=== PATIENT | male | born 1935 | race Caucasian/White ===

== ENCOUNTER 2020-08-10 07:48 | Outpatient (CLI) | payer MEDICARE, SELFPAY | END 2020-08-10 07:49 | disposition home or self-care (01) | LOC: ANHAUDIO 07:53 | PROVIDERS: Visit Provider Otolaryngology | DX: R42 Dizziness and giddiness (principal) | CPT/HCPCS: 92537; 92540 ==

== ENCOUNTER 2022-04-14 07:19 | Inpatient (IN) | payer MEDICARE, SELFPAY ==
[2022-04-14] VITALS (20 sets, daily range): BP systolic 105–148; BP diastolic 61–97; PULSE 90–118; RESP 16–22; TEMP 36–36.8; O2SAT 94–100; BMI 33.5
--- NOTE | ~2022-04-14 | CT_ITS ---
CT head without contrast Indication: Weakness, status post fall Technique: Serial scans were obtained through the brain without the administration of contrast. Dose reduction technique was used on this scan by utilizing automated exposure control and iterative recon struction technique. The dose-length product (DLP) was 983.67 mGy-cm. Findings: There is no evidence of intracranial hemorrhage, mass lesion, or acute infarct. The ventri cles and subarachnoid spaces are dilated, consistent with mild atrophy. Low attenuation regions are seen within the periventricular white matter bilaterally, likely representing changes from chronic mi crovascular ischemic disease. There is no evidence of edema, mass effect or midline shift. There is right maxillary sinus disease. The remaining visualized paranasal sinuses and mastoid air cells are c lear. Impression: No intracranial hemorrhage, mass, or acute infarct. Atrophy and chronic white matter changes, as above. Right maxillary sinus disease. Reviewed, dictated and finalized at location . LE SAWYER Impression: No intracranial hemorrhage, mass, or acute infarct. Atrophy and chronic white matter changes, as above. Right maxillary sinus disease.
--- NOTE | ~2022-04-14 | US_ITS ---
EXAMINATION: US venous doppler [facility] DATE: 04/19/2022 14:23 INDICATION: Leg pain, swelling . TECHNIQUE: Grayscale images without and with compression and Doppler images of the bilateral lower ex tremity veins were obtained. COMPARISON: None FINDINGS: The right common femoral vein, profunda (deep) femoral vein, femoral vein, popliteal vein, peroneal v ein, posterior tibial veins, gastrocnemius vein, and greater saphenous vein are patent. The left common femoral vein, profunda femoral vein, femoral vein, popliteal vein, peroneal vein, pos terior tibial veins, gastrocnemius vein, and greater saphenous vein are patent. IMPRESSION: 1. Patent bilateral lower extremity veins. No evidence of deep venous thrombosis. Reviewed, dictated and finalized at location K. CUTTER DIAMOND IMPRESSION: 1. Patent bilateral lower extremity veins. No evidence of deep venous thrombos is.
--- NOTE | ~2022-04-14 | XR_ITS ---
EXAMINATION: XR chest 1V DATE: 04/14/2022 08:02 INDICATION: Weakness. TECHNIQUE: A single frontal view of the chest was obtained. COMPARISON: None. FINDINGS: Calcified pulmonary nodules and calcified mediastinal lymph nodes are consistent with old g ranulomatous disease. There are airspace opacities in right lower lung zone and left mid and lower jennifer ng zones. No pleural effusion or pneumothorax. The heart size is normal. IMPRESSION: 1. Airspace opacities in right lower lung zone and left mid and lower lung zones, consistent with ate lectasis versus pneumonia. Reviewed, dictated and finalized at location A. ORT SERVICES REP IMPRESSION: 1. Airspace opacities in right lower lung zone and left mid and lower lung zone s, consistent with atelectasis versus pneumonia.
--- NOTE | ~2022-04-14 | XR_ITS ---
EXAMINATION: XR chest 1V portable INDICATION: Shortness of breath TECHNIQUE: Portable AP chest at 1821 hours COMPARISON: 04/14/2022 FINDINGS: Airspace opacities of the lung bases and left midlung zone persist but have improved. No pl eural effusion or pneumothorax. The cardiomediastinal silhouette is normal. IMPRESSION: 1. Persistent but improved airspace opacities of the lung bases and left midlung zone, consistent wit h atelectasis versus pneumonia. Reviewed, dictated and finalized at location F. N RELATIONS PROFESSOR IMPRESSION: 1. Persistent but improved airspace opacities of the lung bases and left midlun g zone, consistent with atelectasis versus pneumonia.
--- NOTE | ~2022-04-14 | XR_ITS ---
Right Humerus Technique: AP and lateral views were obtained. Clinical History: Pain Findings: No fracture or dislocation is seen. Osseous alignment is anatomic. There is mild to moderat e degenerative change of the glenohumeral and acromioclavicular joints. Soft tissues are unremarkable . Impression: No fracture or dislocation. Mild to moderate degenerative change at the glenohumeral and acromial clavicular joints. Reviewed, dictated and finalized at location . L DESK CLERK Impression: No fracture or dislocation. Mild to moderate degenerative change at the glenohumeral and acromial clavicula r joints.
--- NOTE | ~2022-04-14 | MR_ITS ---
EXAMINATION: MR brain/brain stem wo con DATE: 04/14/2022 16:54 INDICATION: Slurred speech. TECHNIQUE: Magnetic resonance imaging (MRI) of the brain and brainstem was performed without intraven ous contrast. COMPARISON: Head CT 04/14/2022 FINDINGS: Motion artifact is noted. There are scattered areas of nonspecific increased T2-weighted si gnal intensity in the cerebral and cerebellar white matter, deep [place] nuclei, and lexie. There are sma ll old infarcts in the cerebellum. There is no intracranial hemorrhage, acute infarction, or abnormal intracranial mass lesion. There is old lacunar infarct in right thalamus. There is an old infarct in the left frontal lobe periventricular white matter. There is a punctate old microhemorrhage in left thalamus. The ventricles are normal in size. There are likely changes of ocular lens replacement surg eries. There is mucosal thickening in the paranasal sinuses. There is complete opacification of right maxillary sinus. The mastoid air cells are normal. IMPRESSION: 1. Old infarcts in the cerebellum, right thalamus, and left frontal lobe. 2. Extensive nonspecific cerebral and cerebellar white matter disease and disease of the deep [place] nu clei and lexie, which likely represents chronic small vessel ischemic disease. 3. Chronic sinusitis. Reviewed, dictated and finalized at location A. ALS LIBRARIAN IMPRESSION: 1. Old infarcts in the cerebellum, right thalamus, and left frontal lobe. 2. Extensive nonspecific cerebral and cerebellar white matter disease and disea se of the deep ireland nuclei and lexie, which likely represents chronic small vess el ischemic disease. 3. Chronic sinusitis.
--- NOTE | 2022-04-14 07:37 | ECG_ITS ---
Measurements Intervals [place] Rate: 94 P: 17 WV: 162 QRS: -41 QRSD: 113 T: 80 QT: 358 QTc: 448 Interpretive Statements SINUS RHYTHM ATRIAL PREMATURE COMPLEX LEFT AXIS DEVIATION INCOMPLETE LEFT BUNDLE BRANCH BLOCK BORDERLINE R WAVE PROGRESSION, ANTERIOR LEADS BORDERLINE ST-T WAVE ABNORMALITY- HIGH LATERAL LEADS BASELINE ARTIFACT- I, II, AVR, AVL ABNORMAL ECG NO PREVIOUS ECG AVAILABLE FOR COMPARISON Electronically Signed On 04-14-2022 10:42:33 HEDGE FUND ACCOUNTANT by Adrian Engel D.O.
--- NOTE | 2022-04-14 07:41 | ED.GENADULT ---
HPI - General Adult General Chief complaint: Fall Stated complaint: weakness, fall Time Seen by Provider: 04/14/22 07:27 History of Present Illness HPI narrative: 87-year-old male presenting to the emergency department for evaluation of increased generalized weakness. Patient states he has had many frequent falls over the last few weeks. Patient states he had a fall last night and then 2 falls this morning. Patient attributes these to increased weakness. Patient denies any injuries from these falls. Patient states last year he had COVID and has never fully recovered. Patient reports she did have a stroke approximately 1 month ago and has mild left-sided deficit from this. Patient denies any chest pain or shortness of breath. Patient denies any nausea vomiting or diarrhea. Related Data Home Medications Medication Instructions Recorded Confirmed Adult Aspirin 81 mg PO DAILY 04/14/22 04/14/22 Adult Mucus Relief 1 tab-cap PO PRN PRN drainage 04/14/22 04/14/22 Adults Multivitamin 1 tab-cap PO DAILY 04/14/22 04/14/22 Jardiance 10 mg PO DAILY 04/14/22 04/14/22 acetaminophen 325 mg capsule 325 mg PO PRN PRN Pain 04/14/22 04/14/22 (Tylenol) alprazolam 0.5 mg tablet (Xanax) 0.5 mg PO PRN PRN Anxiety 04/14/22 04/14/22 atorvastatin 80 mg tablet 80 mg PO HS 04/14/22 04/14/22 cetirizine 10 mg tablet 10 mg PO DAILY 04/14/22 04/14/22 citalopram 20 mg tablet 20 mg PO DAILY 04/14/22 04/14/22 docusate sodium 100 mg capsule 100 mg PO PRN PRN Constipation 04/14/22 04/14/22 (Stool Softener) fluticasone propionate 50 2 spray intranasal PRN PRN 04/14/22 04/14/22 mcg/actuation nasal Congestion spray,suspension meclizine 12.5 mg tablet 12.5 mg PO DAILY 04/14/22 04/14/22 polyethylene glycol 3350 17 gram 17 g PO PRN PRN Constipation 04/14/22 04/14/22 oral powder packet (Miralax) Allergies Allergy/AdvReac Type Severity Reaction Status Date / Time lisinopril Allergy Severe Swelling Verified 04/14/22 11:37 of Lip/Tongue/Throat aluminum Allergy Unknown Verified 04/14/22 12:28 neomycin Allergy Unknown Verified 04/14/22 12:28 warfarin [From Coumadin] Allergy Unknown Verified 04/14/22 11:37 zinc Allergy Unknown Verified 04/14/22 12:28 Review of Systems Review of Systems: Increased generalized weakness All systems reviewed & are unremarkable except as noted in HPI and below PMFSH Past Medical History Medical History Abdominal aortic aneurysm COVID-19 Diabetes Hyperlipidemia Hypertension Pneumonia Staph infection Stroke Surgical History Surgical History S/p total knee replacement, bilateral Family History Family History Father Acute myocardial infarction Heart disease Hypertension Mother Leukemia Social History Social History (Updated 04/14/22 @ 13:53 by SUSI Cloud) Social History: Patient lives at the [facility], he has 3 daughters. His daughter Aleshia was the surrogate. He is to be a DNR per the daughter, and he was a foster. Smoking status: Never smoker Alcohol intake: never Substance use: never Substance use type: does not use Lack of Transportation: No Lack of Food: Never True Current Housing: I Have Housing Concerned About Future Housing: No Difficulty Paying Gas/Electric Bills: No Difficulty Paying for Meds: No Currently Unemployed: No Education: High School Diploma/GED Difficulty w/ Childcare or Family Care: No Living arrangements: assisted living Additional living arrangements comments: [place] Occupation/Education: retired Additional occupation/education comments: Foster Gender identity (if verbalized by the patient): Male Sexual Orientation (if Verbalized by the Patient): Straight or Heterosexual Spiritual care concerns: No Agree to blood products: Yes Exam Na
[2022-04-14 08:40] LABS: Basophils Percent Auto 0.2 % (0.2-1.2); Eosinophils Absolute Auto 0.1 K/mm3 (0-0.3); Eosinophils Percent Auto 1.1 % (0-4.4); Hemoglobin 14.9 g/dL (14.0-18.0); Immature Granulocyte Absolute 0.06 K/mm3 (0.00-0.031); Immature Granulocyte Percent A 0.5 % (0-0.5); Lymphocytes Absolute Auto 1.15 K/mm3 (0.9-3.2); Mean Corpuscular HGB Conc 33.9 g/dl (32-36); Mean Corpuscular Hemoglobin 36.6 pg (26-34); Mean Corpuscular Volume 108.1 fl (80-100); Monocytes Absolute Auto 0.8 K/mm3 (0.1-0.6); Monocytes Percent Auto 6.7 % (2.6-8.5); Neutrophils Absolute Auto 9.4 K/mm3 (1.3-6.7); Neutrophils Percent Auto 81.5 % (45.5-73.1); Red Blood Count 4.07 M/mm3 (4.6-6.20); Red Cell Distribution Width 13.1 % (11.5-14.5); White Blood Count 11.5 K/mm3 (4.5-10.0)
[2022-04-14 09:04] LABS: Lactic Acid Reflex 2.4 mmol/L (0.7-2.0)
[2022-04-14 09:07] LABS: INR 1.1
[2022-04-14 09:09] LABS: Partial Thromboplastin Time 26.3 SECONDS (22.3-36.8)
[2022-04-14 09:13] LABS: Influenza A QL RT-PCR Negative (Negative); Influenza B QL RT-PCR Negative (Negative); RSV RNA, RT-PCR Negative (Negative); SARS-CoV-2 RNA PCR Negative
[2022-04-14 10:17] LABS: Alanine Aminotransferase 29 U/L (6-50); Albumin Level 4.1 g/dL (3.5-5.1); Alkaline Phosphatase 76 U/L (38-126); Anion Gap 8 mmol/L (8-16); Aspartate Amino Transferase 22 U/L (17-59); Bilirubin,Total 1.4 mg/dL (0.2-1.3); Blood Urea Nitrogen 27 mg/dL (9-20); Calcium 9.1 mg/dL (8.4-10.2); Carbon Dioxide 24 mmol/L (22-30); Chloride 99 mmol/L (98-107); Estimated CRCL calculation 59 ml/min; Estimated Glomerular Filt Rate > 60; Glucose 213 mg/dL (65-110); Potassium 4.5 mmol/L (3.4-5.0); Sodium 131 mmol/L (137-145)
[2022-04-14 10:34] LABS: Appearance Urine Clear (Clear); Bacteria Urine None Seen /hpf; Bilirubin Urine Negative (Negative); Blood Urine Negative (Negative); Color Urine Yellow (Yellow); Glucose Urine UA 2+ mg/dL (Negative); Ketones Urine Negative (Negative); Leukocyte Esterase Ur Negative LEU/UL (Negative); Nitrate Urine Negative (Negative); Non Pathogenic Casts 0-2; Protein Urine 1+ mg/dL (Negative); RBC Urine 0-2 /hpf (0-2); Specific Grav Ur 1.028 (1.001-1.035); Squamous Epithelial Cell Urine None seen /hpf (Few); Urobilinogen Urine 0.2 mg/dL (<2.0); WBC Urine 0-5 /hpf
[2022-04-14 10:37] LABS: Add Urine Microscopic? YES
[2022-04-14 11:35] LABS: Reflex Lactic Acid Yes or No Add Lactic
[2022-04-14 11:37] LABS: NT Pro B Type Natriuretic Pept 983 pg/mL (19.9-100)
--- NOTE | 2022-04-14 11:58 | ADMGEN ---
This patient, Hernandez Sutton, was admitted to [facility] Room 305-01. Patient/family oriented to hospital policies and general routines including ID bracelet, bed and alarms, visiting hours, pain management, procedures, bathroom and other care routines, personal items, smoking policy, room service/diet, and visiting hours. Information on how to activate the Rapid Response Team has been discussed. Patient/Family are encouraged to report perceived risks to care and to ask questions if they do not understand what they are told or what they should do.
--- NOTE | 2022-04-14 12:00 | PM.IMHP ---
H&P: HPI History of Present Illness Date/Time: 04/14/22 1200 Chief Complaint: Generalized weakness, aches, frequent falls Narrative: Patient is a 87-year-old male with a past medical history of stroke, COVID, pneumonia, hypertension, AAA who presented the ED from [facility] with complaints of frequent falls and weakness. Daughter was present patient was a poor historian. Daughter stated that all this started about 3 days ago. Her sister was there on Sunday and noticed that the patient was having hard time completing sentences and had fallen. On Sunday the patient had a fall however she thinks that was induced by possibly other people. the patient fell again and today he fell twice again. Patient stated that he got up and was going to the bathroom however he was getting lightheaded and dizzy he stated that he has been having this issue for about a year. He stated that he has been to many different doctors and specialist and has gotten better however it has returned. The daughter stated that he had COVID in January and February of 2020 which she was starting to have symptoms of the dizziness and weakness then. She stated that since then he has just been having hard time getting around. She did state that he did present the same exact way when he had COVID back then. She also stated that he was very weak with the dizziness, lightheadedness, falls. The daughter did state that the patient has not complained of any issues including chest pain, shortness a breath, cough, diarrhea, constipation, nausea, vomiting. Patient has no compromised appetite and the daughter even stated that he eats like a horse. Both the patient and the daughter stated the patient just very tired and achy. The daughter also iterated that the patient has been sleeping a lot lately. Patient denies any urinary issues including inability to started stream or to keep history. Daughter did rate the patient is uncircumcised and does get a rash often. The daughter also states the his bilateral lower extremities are most the time swollen and he does have a little sore on the left leg however the wound nurse has been taking care of that at the [facility]. Head CT did showed no acute infarct mass or hemorrhage, did show atrophy chronic white matter changes and sinus disease. Chest x-ray showed airspace opacities in the right lower lung zones and mid left and lower lung zones consistent with atelectasis versus pneumonia. Patient was not found to have any broken bones. Patient did have an elevated BNP of 983, white count is 11.5, legs do have 2 to 3+ pitting edema bilaterally. COVID test was negative however the daughter did state that it took 5 test and blood test for them to figure out that he had COVID the 1st time. Patient is not needing any current oxygen her therapy at this time. Patient is being admitted to the hospital service under and patient will need greater than 2 midnights for treatment and recovery [facility] Past Medical History Medical History Abdominal aortic aneurysm COVID-19 Diabetes Hyperlipidemia Hypertension Pneumonia Staph infection Stroke Surgical History Surgical History S/p total knee replacement, bilateral Family History Family History Father Acute myocardial infarction Heart disease Hypertension Mother Leukemia Social History Social History (Updated 04/14/22 @ 13:53 by SUSI Cloud) Social History: Patient lives at the [facility], he has 3 daughters. His daughter Aleshia was the surrogate. 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 Smoking status: Never smoker Alcohol intake: never Substance use: never Substance use type: does not use Lack of Transportation: No Lack of Food: Never True Current Housing: I Have Housing Concern
[2022-04-14 12:33] LABS: Glucose Point of Care 236 mg/dl (65-105)
[2022-04-14 15:37] LABS: Lactic Acid 2.3 mmol/L (0.7-2.0)
[2022-04-14] MEDS: DOCUSATE SODIUM 100 MG CAPSULE PO (17:14)
[2022-04-14 17:24] LABS: Glucose Point of Care 200 mg/dl (65-105)
[2022-04-14] MEDS: ATORVASTATIN 40 MG TABLET 80 MG PO (21:22)
[2022-04-14 22:31] LABS: Glucose Point of Care 233 mg/dl (65-105)
--- NOTE | 2022-04-14 23:47 | PCRCNOTE ---
Pt does not want our CPAP, and states he rarely wears his home one
--- NOTE | 2022-04-15 | ECHO_ITS ---
Patient Info Name: Hernandez Sutton Age: 87 years : 1935 Gender: Male Ht: 71 in Wt: 240 lbs BSA: 2.37 m2 HR: 87 bpm BP: 110 / 86 mmHg Technical Quality: Fair Exam Date: 04/15/2022 8:28 AM Exam Location: [facility] Patient Status: Inpatient Admit Date: 04/14/2022 Staff Ordering Physician: Anand Santana Residential Mortgage Manager: Alessia Morse RDCS Attending Provider: Eliezer Romero MD Referring Physician: Max GREEN; Exam Type: CA echo doppler color flow Study Info Indications J81.0 - Acute pulmonary edema Complete two-dimensional, color flow and Doppler transthoracic echocardiogram is performed. Summary 1. Complete two-dimensional, color flow and Doppler transthoracic echocardiogram is performed. 2. Left ventricular chamber dimension is normal. 3. Left ventricular systolic function is normal, estimated at 55-60%. 4. There is mildly increased left ventricular wall thickness. 5. The left ventricular diastolic function is grade I diastolic dysfunction. 6. E/e' 9 is minimally elevated. 7. There is mild aortic valve sclerosis. 8. There is moderate aortic valve regurgitation. Left Ventricle E/e' 9 is minimally elevated. Left ventricular chamber dimension is normal. Left ventricular systolic function is normal, estimated at 55-60%. There is mildly increased left ventricular wall thickness. The left ventricular diastolic function is grade I diastolic dysfunction. Right Ventricle Right ventricular systolic function is normal and with normal TAPSE 1.9 cm. Right ventricular chamber dimension is normal. Left Atria Left atrial chamber dimension is normal. Right Atria Right atrial chamber dimension is normal. Aortic Valve The aortic valve is trileaflet. There is mild aortic valve sclerosis. There is no aortic valve stenosis. There is moderate aortic valve regurgitation. Pulmonic Valve There is no pulmonic regurgitation. Mitral Valve There is no mitral valve stenosis. There is no mitral valve regurgitation. Tricuspid Valve There is no tricuspid valve regurgitation. Pericardium/Pleural There is no pericardial effusion. Inferior Vena Cava Normal inferior vena cava with >50% collapse upon inspiration consistent with normal right atrial pressure, 5 mmHg. Aorta The aortic root size at the sinus of Valsalva is normal. Left Ventricular Outflow Tract Name Value Normal LVOT 2D LVOT Diameter 2.7 cm LVOT Doppler LVOT Peak Gradient 4 mmHg LVOT Mean Gradient 2 mmHg LVOT VTI 26 cm LVOT VTI/AV VTI Ratio 1.3 LVOT Stroke Volume 148 ml LVOT CO 12.9 l/min LVOT CI 5.4 l/min/m2 Pulmonic Valve Name Value Normal PV Doppler
[2022-04-15 06:00] VITALS: BP 100/76; PULSE 86; RESP 16; TEMP 36.4; O2SAT 93
[2022-04-15 06:39] LABS: Basophils Percent Auto 0.4 % (0.2-1.2); Eosinophils Absolute Auto 0.2 K/mm3 (0-0.3); Eosinophils Percent Auto 2.4 % (0-4.4); Hematocrit 36.7 % (42.0-52.0); Hemoglobin 12.6 g/dL (14.0-18.0); Immature Granulocyte Absolute 0.06 K/mm3 (0.00-0.031); Immature Granulocyte Percent A 0.7 % (0-0.5); Lymphocytes Absolute Auto 1.26 K/mm3 (0.9-3.2); Lymphocytes Percent Auto 14.9 % (18.3-44.2); Mean Corpuscular HGB Conc 34.3 g/dl (32-36); Mean Corpuscular Hemoglobin 36.2 pg (26-34); Mean Corpuscular Volume 105.5 fl (80-100); Mean Platelet Volume 9.3 fl (7.4-10.4); Monocytes Absolute Auto 0.7 K/mm3 (0.1-0.6); Monocytes Percent Auto 7.7 % (2.6-8.5); Neutrophils Absolute Auto 6.3 K/mm3 (1.3-6.7); Neutrophils Percent Auto 73.9 % (45.5-73.1); Platelet Count Result 118 k/mm3 (150-375); Red Blood Count 3.48 M/mm3 (4.6-6.20); Red Cell Distribution Width 13.1 % (11.5-14.5); White Blood Count 8.5 K/mm3 (4.5-10.0)
[2022-04-15 06:44] LABS: Alanine Aminotransferase 23 U/L (6-50); Albumin Level 3.3 g/dL (3.5-5.1); Alkaline Phosphatase 64 U/L (38-126); Anion Gap 3 mmol/L (8-16); Aspartate Amino Transferase 19 U/L (17-59); Bilirubin,Total 1.6 mg/dL (0.2-1.3); Blood Urea Nitrogen 21 mg/dL (9-20); Calcium 8.1 mg/dL (8.4-10.2); Carbon Dioxide 26 mmol/L (22-30); Chloride 96 mmol/L (98-107); Estimated CRCL calculation 72 ml/min; Estimated Glomerular Filt Rate > 60; Glucose 179 mg/dL (65-110); Potassium 4.2 mmol/L (3.4-5.0); Sodium 125 mmol/L (137-145)
[2022-04-15 07:43] LABS: Glucose Point of Care 186 mg/dl (65-105)
[2022-04-15 08:50] LABS: Hemoglobin A1C 7.9 % (<5.7)
[2022-04-15] MEDS: EMPAGLIFLOZIN 10 MG TABLET PO (09:29)
[2022-04-15] MEDS: MECLIZINE HCL 12.5 MG TABLET PO (09:29)
[2022-04-15] MEDS: CITALOPRAM HYDROBROMIDE 20 MG TABLET PO (09:29)
[2022-04-15] MEDS: DOCUSATE SODIUM 100 MG CAPSULE PO ×2 (09:29→16:08)
[2022-04-15] MEDS: ASPIRIN 81 MG ENTERIC TABLET PO (09:29)
[2022-04-15] MEDS: ACETAMINOPHEN 325 MG TABLET 650 MG PO (09:42)
[2022-04-15] MEDS: LORATADINE 10 MG TABLET PO (09:43)
[2022-04-15] MEDS: SODIUM CHLORIDE 0.9% IV 1,000 ML 100 ML IV CONT (09:43)
--- NOTE | 2022-04-15 10:15 | PM.IMPN ---
Progress Note: A&P Assessment and Plan (1) Pneumonia: Code(s): J18.9 - Pneumonia, unspecified organism Status: Acute Assessment and Plan: Chest xray showed airspace opacities in right lower lung zone, and left mid and lower lung zone consistent with atelectasis, versus PNA Continue IV ceftriaxone and azithromycin WBC trending down currently 8.5 Trend labs Chest xray in 2 days Sputum culture ordered Blood cultures pending (2) CHF (congestive heart failure): Code(s): I50.9 - Heart failure, unspecified Status: Acute Assessment and Plan: BNP 983 Echo EF 55-60%, grade 1 diastolic dysfunction Daily weights continue aspirin, consider beta david Trend urine output 2-3+ pitting edema mainly on the right Most likely acute on chronic diastolic heart failure with possible exacerbation (3) Cellulitis: Code(s): L03.90 - Cellulitis, unspecified Status: Acute Assessment and Plan: Redness, swelling, pain, and fever noted to the right lower extremity Changed antibiotics to vanco, cefepime, Flagyl Ordered wraps WBC stable at 8.5 Continue to trend symptoms Adjust therapy as indicated (4) Dizziness: Code(s): R42 - Dizziness and giddiness Status: Acute Assessment and Plan: Orthostatic bloods ordered Consider holding blood pressure medications if hypotension is noted Continue to trend labs MRI of the brain 1. Old infarcts in the cerebellum, right thalamus, and left frontal lobe. 2. Extensive nonspecific cerebral and cerebellar white matter disease and disease of the deep ireland nuclei and lexie, which likely represents chronic small vessel ischemic disease. 3. Chronic sinusitis. Trend labs and vital signs Could be related to the cerebellar stroke (5) Generalized weakness: Code(s): R53.1 - Weakness Status: Acute Assessment and Plan: Could be related to infection Orthostatic blood pressures ordered Brain MRI found old strokes Could be related to old infarct (6) Hyperlipidemia: Code(s): E78.5 - Hyperlipidemia, unspecified Status: Acute Assessment and Plan: Continue atorvastatin Consider lipid panel (7) Hypertension: Code(s): I10 - Essential (primary) hypertension Status: Acute Assessment and Plan: Current BP is 108/67 Trend BP No home medication Adjust therapy as indicated (8) Diabetes: Code(s): E11.9 - Type 2 diabetes mellitus without complications Status: Acute Assessment and Plan: Glucose is 179 Continue home Jardiance A1c 7.9 ISS Hypoglycemia protocol Accu cheks AC/HS trend glucose Adjust therapy as indicated (9) Frequent falls: Code(s): R29.6 - Repeated falls Status: Acute Assessment and Plan: Could be related to pneumonia PT/OT ordered Orthostatic blood pressures found MRI of the brain ordered found many strokes Fall precautions Time Spent With Patient Time: 56 minutes Spoke to his daughter, updated plan and shared new findings. Time with patient: Greater than 35 minutes Subjective Date/time seen: 04/15/22 1015 Interval history: 04/15/22 1015 Patient is a lot better today. He is sitting in bed eating. He is alert and oriented. He was able to answer all questions. He did state that the aches and pains were better, and that he was able to move around better. Patient also wants to get up to chair. Patient stated that he is not having any further chest pain, shortness a breath, nausea, vomiting, diarrhea, constipation. He did state that his right leg was experiencing some pain. Right leg did appear to have some cellulitis appearing. Leg is hot, red, swollen from under the knee to the foot. There is an open wound on the left inner lateral sh
--- NOTE | 2022-04-15 10:15 | P.PNIM_ITS ---
Progress Note: A&P Assessment and Plan (1) Pneumonia: Code(s): J18.9 - Pneumonia, unspecified organism Status: Acute Assessment and Plan: * Chest xray showed airspace opacities in right lower lung zone, and left mid and lower lung zone consistent with atelectasis, versus PNA * Continue IV ceftriaxone and azithromycin * WBC trending down currently 8.5 * Trend labs * Chest xray in 2 days * Sputum culture ordered * Blood cultures pending (2) CHF (congestive heart failure): Code(s): I50.9 - Heart failure, unspecified Status: Acute Assessment and Plan: * BNP 983 * Echo EF 55-60%, grade 1 diastolic dysfunction * Daily weights * continue aspirin, consider beta david * Trend urine output * 2-3+ pitting edema mainly on the right * Most likely acute on chronic diastolic heart failure with possible exacerbation (3) Cellulitis: Code(s): L03.90 - Cellulitis, unspecified Status: Acute Assessment and Plan: * Redness, swelling, pain, and fever noted to the right lower extremity * Changed antibiotics to vanco, cefepime, Flagyl * Ordered wraps * WBC stable at 8.5 * Continue to trend symptoms * Adjust therapy as indicated (4) Dizziness: Code(s): R42 - Dizziness and giddiness Status: Acute Assessment and Plan: * Orthostatic bloods ordered * Consider holding blood pressure medications if hypotension is noted * Continue to trend labs * MRI of the brain 1. Old infarcts in the cerebellum, right thalamus, and left frontal lobe. 2. Extensive nonspecific cerebral and cerebellar white matter disease and disease of the deep [place] nuclei and lexie, which likely represents chronic small vessel ischemic disease. 3. Chronic sinusitis. * Trend labs and vital signs * Could be related to the cerebellar stroke (5) Generalized weakness: Code(s): R53.1 - Weakness Status: Acute Assessment and Plan: * Could be related to infection * Orthostatic blood pressures ordered * Brain MRI found old strokes * Could be related to old infarct (6) Hyperlipidemia: Code(s): E78.5 - Hyperlipidemia, unspecified Status: Acute Assessment and Plan: * Continue atorvastatin * Consider lipid panel (7) Hypertension: Code(s): I10 - Essential (primary) hypertension Status: Acute Assessment and Plan: * Current BP is 108/67 * Trend BP * No home medication * Adjust therapy as indicated (8) Diabetes: Code(s): E11.9 - Type 2 diabetes mellitus without complications Status: Acute Assessment and Plan: * Glucose is 179 * Continue home Jardiance * A1c 7.9 * ISS * Hypoglycemia protocol * Accu cheks AC/HS * trend glucose * Adjust therapy as indicated (9) Frequent falls: Code(s): R29.6 - Repeated falls Status: Acute Assessment and Plan: * Could be related to pneumonia * PT/OT ordered * Orthostatic blood pressures found * MRI of the brain ordered found many strokes * Fall precautions Time Spent With Patient Time: 56 minutes Spoke to his daughter, updated plan and shared
[2022-04-15 11:22] LABS: Glucose Point of Care 264 mg/dl (65-105)
[2022-04-15] MEDS: INSULIN ASPART (*BKC) 100 UNITS/ML SUB-Q ×2 (11:43→16:24)
[2022-04-15 13:27] LABS: Creatinine Urine 57.9 mg/dL; Urea Random Urine 551 MG/DL
[2022-04-15 13:33] LABS: Sodium Urine Random 50 meq/L
[2022-04-15 13:56] VITALS: BP 108/67; PULSE 88; RESP 16; TEMP 36.1; O2SAT 96
[2022-04-15] MEDS: metroNIDAZOLE 500 MG/ISO 100ML 500 MG/100 ML BAG 100 MG IVPB ×2 (16:08→21:31)
[2022-04-15 16:20] LABS: Glucose Point of Care 209 mg/dl (65-105)
[2022-04-15] MEDS: ATORVASTATIN 40 MG TABLET 80 MG PO (20:03)
[2022-04-15 21:00] VITALS: PULSE 87; O2SAT 95
[2022-04-15 21:22] LABS: Glucose Point of Care 242 mg/dl (65-105)
[2022-04-15 22:00] VITALS: BP 126/76; PULSE 89; RESP 16; TEMP 36.2; O2SAT 96
[2022-04-16] MEDS: ALPRAZolam (*CRX) 0.5 MG TABLET PO (00:21)
[2022-04-16] MEDS: SODIUM CHLORIDE 0.9% IV 1,000 ML 100 ML IV CONT ×2 (02:32→17:24)
[2022-04-16 05:23] VITALS: BP 128/86; PULSE 111; RESP 20; TEMP 37.2; O2SAT 98
[2022-04-16] MEDS: metroNIDAZOLE 500 MG/ISO 100ML 500 MG/100 ML BAG 100 MG IVPB ×3 (05:56→21:01)
[2022-04-16 08:20] LABS: Glucose Point of Care 220 mg/dl (65-105)
[2022-04-16] MEDS: INSULIN ASPART (*BKC) 100 UNITS/ML SUB-Q ×2 (08:47→11:54)
[2022-04-16] MEDS: CITALOPRAM HYDROBROMIDE 20 MG TABLET PO (08:50)
[2022-04-16] MEDS: DOCUSATE SODIUM 100 MG CAPSULE PO ×2 (08:50→17:22)
[2022-04-16] MEDS: EMPAGLIFLOZIN 10 MG TABLET PO (08:50)
[2022-04-16] MEDS: ASPIRIN 81 MG ENTERIC TABLET PO (08:50)
[2022-04-16] MEDS: MECLIZINE HCL 12.5 MG TABLET PO (08:50)
[2022-04-16] MEDS: LORATADINE 10 MG TABLET PO (08:52)
--- NOTE | 2022-04-16 10:00 | P.PNIM_ITS ---
Progress Note: A&P Assessment and Plan (1) Hyponatremia: Code(s): E87.1 - Hypo-osmolality and hyponatremia Status: Acute Assessment and Plan: * Na is 124 today * Continue fluids at 100ml/hr * Consider nephrology if no improvement noted * Continue to trend labs * Give 1L NS * Recheck labs this afternoon * Adjust therapy as indicated (2) Bacteremia: Code(s): R78.81 - Bacteremia Status: Acute Assessment and Plan: * MRSA came back in one bottle * Continue vancomycin for now * Will need prison IV antibiotics * MRSA swab is pending * WBC stable at 7.6 * Repeat blood cultures pending (3) Pneumonia: Code(s): J18.9 - Pneumonia, unspecified organism Status: Acute Assessment and Plan: * Chest xray showed airspace opacities in right lower lung zone, and left mid and lower lung zone consistent with atelectasis, versus PNA * Continue IV cefepime and vanco for now * WBC trending down currently 7.6 * Trend labs * Chest xray tomorrow * Sputum culture ordered, yet still awaiting collection * Blood cultures grew MRSA in 1 bottle (4) CHF (congestive heart failure): Code(s): I50.9 - Heart failure, unspecified Status: Acute Assessment and Plan: * BNP 983 * Echo EF 55-60%, grade 1 diastolic dysfunction * Daily weights * continue aspirin, consider beta david * Trend urine output * 2-3+ pitting edema mainly on the right * Most likely acute on chronic diastolic heart failure with possible exacerbation (5) Cellulitis: Code(s): L03.90 - Cellulitis, unspecified Status: Acute Assessment and Plan: * Redness, swelling, pain, and fever noted to the right lower extremity * Changed antibiotics to vanco, cefepime, Flagyl * Ordered wraps * WBC stable at 7.6 * Spoke with the wound nurse, ordered Santyl, Vaseline gauze, and dry dressing * Continue to trend symptoms * Adjust therapy as indicated (6) Dizziness: Code(s): R42 - Dizziness and giddiness Status: Acute Assessment and Plan: * Orthostatic bloods ordered * Consider holding blood pressure medications if hypotension is noted * Continue to trend labs * MRI of the brain 1. Old infarcts in the cerebellum, right thalamus, and left frontal lobe. 2. Extensive nonspecific cerebral and cerebellar white matter disease and disease of the [place] nuclei and lexie, which likely represents chronic small vessel ischemic disease. 3. Chronic sinusitis. * Trend labs and vital signs * Could be related to the cerebellar stroke (7) Generalized weakness: Code(s): R53.1 - Weakness Status: Acute Assessment and Plan: * Could be related to infection * Orthostatic blood pressures ordered * Brain MRI found old strokes * Could be related to old infarct * seems stable at this time (8) Hyperlipidemia: Code(s): E78.5 - Hyperlipidemia, unspecified Status: Acute Assessment and Plan: * Continue atorvastatin * Consider lipid panel (9) Hypertension: Code(s): I10 - Essential (primary) hypertension Status: Acute Assessment and Plan: * Current BP is 128/86 * Trend BP * No
--- NOTE | 2022-04-16 10:00 | PM.IMPN ---
Progress Note: A&P Assessment and Plan (1) Hyponatremia: Code(s): E87.1 - Hypo-osmolality and hyponatremia Status: Acute Assessment and Plan: Na is 124 today Continue fluids at 100ml/hr Consider nephrology if no improvement noted Continue to trend labs Give 1L NS Recheck labs this afternoon Adjust therapy as indicated (2) Bacteremia: Code(s): R78.81 - Bacteremia Status: Acute Assessment and Plan: MRSA came back in one bottle Continue vancomycin for now Will need long term acute care registered nurse IV antibiotics MRSA swab is pending WBC stable at 7.6 Repeat blood cultures pending (3) Pneumonia: Code(s): J18.9 - Pneumonia, unspecified organism Status: Acute Assessment and Plan: Chest xray showed airspace opacities in right lower lung zone, and left mid and lower lung zone consistent with atelectasis, versus PNA Continue IV cefepime and vanco for now WBC trending down currently 7.6 Trend labs Chest xray tomorrow Sputum culture ordered, yet still awaiting collection Blood cultures grew MRSA in 1 bottle (4) CHF (congestive heart failure): Code(s): I50.9 - Heart failure, unspecified Status: Acute Assessment and Plan: BNP 983 Echo EF 55-60%, grade 1 diastolic dysfunction Daily weights continue aspirin, consider beta david Trend urine output 2-3+ pitting edema mainly on the right Most likely acute on chronic diastolic heart failure with possible exacerbation (5) Cellulitis: Code(s): L03.90 - Cellulitis, unspecified Status: Acute Assessment and Plan: Redness, swelling, pain, and fever noted to the right lower extremity Changed antibiotics to vanco, cefepime, Flagyl Ordered wraps WBC stable at 7.6 Spoke with the wound nurse, ordered Santyl, Vaseline gauze, and dry dressing Continue to trend symptoms Adjust therapy as indicated (6) Dizziness: Code(s): R42 - Dizziness and giddiness Status: Acute Assessment and Plan: Orthostatic bloods ordered Consider holding blood pressure medications if hypotension is noted Continue to trend labs MRI of the brain 1. Old infarcts in the cerebellum, right thalamus, and left frontal lobe. 2. Extensive nonspecific cerebral and cerebellar white matter disease and disease of the [place] nuclei and lexie, which likely represents chronic small vessel ischemic disease. 3. Chronic sinusitis. Trend labs and vital signs Could be related to the cerebellar stroke (7) Generalized weakness: Code(s): R53.1 - Weakness Status: Acute Assessment and Plan: Could be related to infection Orthostatic blood pressures ordered Brain MRI found old strokes Could be related to old infarct seems stable at this time (8) Hyperlipidemia: Code(s): E78.5 - Hyperlipidemia, unspecified Status: Acute Assessment and Plan: Continue atorvastatin Consider lipid panel (9) Hypertension: Code(s): I10 - Essential (primary) hypertension Status: Acute Assessment and Plan: Current BP is 128/86 Trend BP No home medication Adjust therapy as indicated (10) Diabetes: Code(s): E11.9 - Type 2 diabetes mellitus without complications Status: Acute Assessment and Plan: Glucose is 285 Continue home Jardiance A1c 7.9 ISS Hypoglycemia protocol Accu cheks AC/HS trend glucose Adjust therapy as indicated (11) Frequent falls: Code(s): R29.6 - Repeated falls Status: Acute Assessment and Plan: Could be related to pneumonia PT/OT ordered Orthostatic blood pressures MRI of the brain ordered found many strokes Fall precautions Plan Daughter was in the room and all questions answered, plan of care updated
[2022-04-16 10:12] LABS: Basophils Percent Auto 0.1 % (0.2-1.2); Eosinophils Absolute Auto 0.3 K/mm3 (0-0.3); Eosinophils Percent Auto 3.3 % (0-4.4); Hematocrit 36.9 % (42.0-52.0); Hemoglobin 12.6 g/dL (14.0-18.0); Immature Granulocyte Absolute 0.07 K/mm3 (0.00-0.031); Immature Granulocyte Percent A 0.9 % (0-0.5); Lymphocytes Absolute Auto 1.07 K/mm3 (0.9-3.2); Lymphocytes Percent Auto 14.1 % (18.3-44.2); Mean Corpuscular HGB Conc 34.1 g/dl (32-36); Mean Corpuscular Hemoglobin 36.4 pg (26-34); Mean Corpuscular Volume 106.6 fl (80-100); Mean Platelet Volume 9.2 fl (7.4-10.4); Monocytes Absolute Auto 0.5 K/mm3 (0.1-0.6); Monocytes Percent Auto 6.6 % (2.6-8.5); Neutrophils Absolute Auto 5.7 K/mm3 (1.3-6.7); Platelet Count Result 128 k/mm3 (150-375); Red Blood Count 3.46 M/mm3 (4.6-6.20); White Blood Count 7.6 K/mm3 (4.5-10.0)
[2022-04-16 10:25] LABS: Alanine Aminotransferase 23 U/L (6-50); Albumin Level 3.4 g/dL (3.5-5.1); Alkaline Phosphatase 64 U/L (38-126); Anion Gap 4 mmol/L (8-16); Aspartate Amino Transferase 20 U/L (17-59); Bilirubin,Total 1.1 mg/dL (0.2-1.3); Blood Urea Nitrogen 19 mg/dL (9-20); Carbon Dioxide 25 mmol/L (22-30); Chloride 95 mmol/L (98-107); Estimated CRCL calculation 72 ml/min; Estimated Glomerular Filt Rate > 60; Glucose 285 mg/dL (65-110); Magnesium 2.1 mg/dL (1.6-2.3); Potassium 3.9 mmol/L (3.4-5.0); Sodium 124 mmol/L (137-145)
[2022-04-16] MEDS: ACETAMINOPHEN 325 MG TABLET 650 MG PO (10:51)
[2022-04-16] MEDS: SODIUM CHLORIDE 0.9% IV 1,000 ML 999 ML IV CONT (11:50)
[2022-04-16 11:55] LABS: Glucose Point of Care 263 mg/dl (65-105)
[2022-04-16] MEDS: COLLAGENASE OINT 30 GM TUBE 1 APPLIC TOPICAL (13:21)
[2022-04-16 14:00] VITALS: BP 111/68; PULSE 108; RESP 20; TEMP 36.1; O2SAT 97
[2022-04-16 14:54] LABS: Sodium 128 mmol/L (137-145)
[2022-04-16 17:17] LABS: Glucose Point of Care 195 mg/dl (65-105)
[2022-04-16 17:57] VITALS: BP 151/96; PULSE 112; RESP 24; TEMP 36; O2SAT 98
--- NOTE | 2022-04-16 17:57 | ECG_ITS ---
Measurements Intervals [place] Rate: 109 P: 42 VA: 186 QRS: -35 QRSD: 120 T: 131 QT: 339 QTc: 458 Interpretive Statements SINUS TACHYCARDIA LEFT AXIS DEVIATION INCOMPLETE LEFT BUNDLE BRANCH BLOCK BORDERLINE R WAVE PROGRESSION, ANTERIOR LEADS ST-T WAVE ABNORMALITY IN HIGH LATERAL LEADS- CONSIDER ISCHEMIA BASELINE ARTIFACT- I, III, AVR, AVL, AVF ABNORMAL ECG COMPARED TO ECG 04/14/2022 10:28:35 SINUS TACHYCARDIA NOW PRESENT ST-T WAVE ABNORMALITY MORE SIGNIFICANT Electronically Signed On 04-16-2022 21:06:37 AUTOCLAVE OPERATOR by Adrian Engel D.O.
[2022-04-16 19:15] LABS: Troponin I < 0.012 ng/mL (0.000-0.034)
[2022-04-16 19:25] LABS: D Dimer 0.92 ug/mL (<0.48)
[2022-04-16 20:25] VITALS: BP 150/92; PULSE 113; O2SAT 98
[2022-04-16 21:03] LABS: Glucose Point of Care 246 mg/dl (65-105)
[2022-04-16] MEDS: ATORVASTATIN 40 MG TABLET 80 MG PO (21:03)
[2022-04-16] MEDS: BELLADONNA ALK/PHENOB ELIX 10 ML, MAG HYDROX/ALUMINUM HYD/SIMETH 30 ML, LIDOCAINE HCL 2... PO (21:11)
[2022-04-16 21:25] VITALS: BP 120/79; PULSE 111; RESP 16; TEMP 36.3; O2SAT 96
[2022-04-16 21:43] LABS: Troponin I 0.021 ng/mL (0.000-0.034)
[2022-04-16 22:00] VITALS: PULSE 92
[2022-04-17 01:54] LABS: Troponin I 0.088 ng/mL (0.000-0.034)
[2022-04-17 05:36] VITALS: BP 107/54; PULSE 82; RESP 18; TEMP 36.2; O2SAT 97
[2022-04-17] MEDS: metroNIDAZOLE 500 MG/ISO 100ML 500 MG/100 ML BAG 100 MG IVPB ×2 (05:56→14:27)
[2022-04-17] MEDS: SODIUM CHLORIDE 0.9% IV 1,000 ML 100 ML IV CONT ×2 (05:56→18:31)
[2022-04-17 06:44] LABS: Basophils Percent Auto 0.3 % (0.2-1.2); Eosinophils Absolute Auto 0.3 K/mm3 (0-0.3); Eosinophils Percent Auto 3.6 % (0-4.4); Hematocrit 36.8 % (42.0-52.0); Hemoglobin 12.7 g/dL (14.0-18.0); Immature Granulocyte Absolute 0.07 K/mm3 (0.00-0.031); Lymphocytes Absolute Auto 1.35 K/mm3 (0.9-3.2); Lymphocytes Percent Auto 18.4 % (18.3-44.2); Mean Corpuscular HGB Conc 34.5 g/dl (32-36); Mean Corpuscular Hemoglobin 36.5 pg (26-34); Mean Corpuscular Volume 105.7 fl (80-100); Monocytes Absolute Auto 0.7 K/mm3 (0.1-0.6); Neutrophils Absolute Auto 4.9 K/mm3 (1.3-6.7); Neutrophils Percent Auto 66.7 % (45.5-73.1); Platelet Count Result 136 k/mm3 (150-375); Red Blood Count 3.48 M/mm3 (4.6-6.20); Red Cell Distribution Width 12.7 % (11.5-14.5); White Blood Count 7.3 K/mm3 (4.5-10.0)
[2022-04-17 07:03] LABS: Alanine Aminotransferase 23 U/L (6-50); Albumin Level 3.2 g/dL (3.5-5.1); Alkaline Phosphatase 70 U/L (38-126); Anion Gap 5 mmol/L (8-16); Aspartate Amino Transferase 21 U/L (17-59); Blood Urea Nitrogen 17 mg/dL (9-20); Carbon Dioxide 23 mmol/L (22-30); Chloride 103 mmol/L (98-107); Estimated CRCL calculation 72 ml/min; Estimated Glomerular Filt Rate > 60; Glucose 170 mg/dL (65-110); Potassium 3.9 mmol/L (3.4-5.0); Sodium 131 mmol/L (137-145)
[2022-04-17 07:29] LABS: Troponin I 0.131 ng/mL (0.000-0.034)
--- NOTE | 2022-04-17 07:33 | ECG_ITS ---
Measurements Intervals [place] Rate: 85 P: OR: 0 QRS: -28 QRSD: 113 T: 12 QT: 378 QTc: 452 Interpretive Statements SINUS RHYTHM ATRIAL AND VENTRICULAR PREMATURE COMPLEXES INCOMPLETE LEFT BUNDLE BRANCH BLOCK BORDERLINE R WAVE PROGRESSION, ANTERIOR LEADS BORDERLINE ST-T WAVE ABNORMALITY- INF/HIGH LAT LEADS ABNORMAL ECG COMPARED TO ECG 04/16/2022 18:04:19 SINUS RHYTHM NOW PRESENT Electronically Signed On 04-17-2022 8:32:30 CLOTHING PATTERN PREPARER by Adrian Engel D.O.
[2022-04-17 07:53] LABS: Glucose Point of Care 213 mg/dl (65-105)
[2022-04-17] MEDS: INSULIN ASPART (*BKC) 100 UNITS/ML SUB-Q ×3 (08:04→17:26)
[2022-04-17] MEDS: COLLAGENASE OINT 30 GM TUBE 1 APPLIC TOPICAL (08:05)
[2022-04-17] MEDS: CITALOPRAM HYDROBROMIDE 20 MG TABLET PO (08:06)
[2022-04-17] MEDS: ASPIRIN 81 MG ENTERIC TABLET PO (08:06)
[2022-04-17] MEDS: EMPAGLIFLOZIN 10 MG TABLET PO (08:06)
[2022-04-17] MEDS: MECLIZINE HCL 12.5 MG TABLET PO (08:06)
[2022-04-17] MEDS: DOCUSATE SODIUM 100 MG CAPSULE PO ×2 (08:10→16:36)
[2022-04-17] MEDS: LORATADINE 10 MG TABLET PO (08:10)
[2022-04-17] MEDS: ACETAMINOPHEN 325 MG TABLET 650 MG PO ×2 (08:17→14:36)
--- NOTE | 2022-04-17 09:46 | PM.CNCAR ---
Assessment and Plan Assessment and plan (1) Chest pain: Code(s): R07.9 - Chest pain, unspecified Status: Acute Assessment and Plan: Episode of chest pain last night following his evening meal. Chest pain resolved with a GI cocktail. No recurrence of chest pain. Troponin levels were drawn and were elevated at 0.088, 0.131, 0.146. EKG was taken and showed sinus rhythm with incomplete left bundle branch block ( which is not new), borderline STTW abnormality, but nothing that meets criteria for ischemia. He does have significant underlying coronary artery disease, so possible that this chest pain was related to myocardial ischemia. However, patient is neither a candidate for or desirous of undergoing any invasive cardiac testing such as coronary angiogram. Discussed with the family that we will continue to treat his coronary disease with conservative medical management. He is already on aspirin and statin. Will add Plavix to his medical regimen. (2) CHF (congestive heart failure): Code(s): I50.9 - Heart failure, unspecified Status: Acute Assessment and Plan: He has diastolic noncompliance but does not appear to be in decompensated heart failure at this time. Continue current medical therapy. History of Present Illness History of Present Illness Consult date/time: 04/17/22 09:46 Requesting physician: Meghan Dean PA-C Consult reason: chest pain Reason For Visit: Pneumonia/Frequent Falls Narrative: Mr. Sutton is a 87 year old male with a history of hypertension, hyperlipidemia, three vessel coronary artery disease, and a CVA in 2020. This is a patient who was brought to the hospital for evaluation following a fall in the dining [place] of the [facility] where he resides. Patient reports multiple falls over the past year. Cardiology is being asked to see him because of an episode of chest pain he had last night. Patient states that after he finished eating his dinner he had some central chest pressure. Patient does not describe this as pain but as a discomfort and fullness. He states that he was given a GI cocktail which resolved the pain. Currently not having any chest pain. Patient's daughter is at the bedside and is able to provide some cardiac history. She states that he had a coronary angiogram about 2 years ago that revealed severe, 3 vessel coronary artery disease. CABG was recommended at that time, but patient did not want to undergo open heart surgery. Therefore, he has been treated with conservative medical management. Currently, he is resting comfortably in his bed eating breakfast. He denies any chest pain, shortness of breath, palpitations, syncope, or presyncope. He does have some mild bilateral lower extremity edema. Review of Systems Constitutional: Constitutional: Denies chills, Denies fever(s), Denies headache(s) and Denies malaise Eyes: Eyes: Denies change in vision ENT: Reports Normal hearing present, Denies dizziness, Denies headache(s) and Denies hearing loss Cardiovascular: Cardiovascular: Reports chest pain, Denies chest pain at rest, Denies chest pain with activity, Denies syncope, Denies leg edema, Denies palpitations, Denies dyspnea and Denies dyspnea on exertion Respiratory: Respiratory: Denies cough, Denies dyspnea, Denies dyspnea on exertion and Denies wheezing Gastrointestinal: Gastrointestinal: Denies abdominal pain, Denies constipation and Denies diarrhea Genitourinary: Genitourinary: Denies hematuria and Denies dysuria Musculoskeletal: Musculoskeletal: Denies myalgias, Denies arthralgias and Denies muscle cramps Integumentary/Breasts: Skin/Breast: Denies wounds Neurologic: Reports Normal hearing present, Denies confusion, Denies dizziness, Denies syncope and Denies headache(s) Psychiatric: Psychiatric: Denies anxiety, Denies confusion and Denies depression Endocrine: Endocrine: Denies cold intolerance, Denies flushing, Denies heat
[2022-04-17 10:35] LABS: Troponin I 0.146 ng/mL (0.000-0.034)
[2022-04-17 11:47] LABS: Glucose Point of Care 267 mg/dl (65-105)
--- NOTE | 2022-04-17 12:45 | P.CDI_ITS ---
CDI Query Clarification Request cellulitis ruled out <Meghan Dean PA-C - Last Filed: 04/18/22 16:50> Clarified Diagnosis Clarified Diagnosis: Please clarify if there is a cause and effect relationship between cellulitis and Diabetes Mellitus. * There is a relationship between cellulitis and Diabetes Mellitus. * There is not a relationship between cellulitis and Diabetes Mellitus. * Unknown if there is a relationship between cellulitis and Diabetes Mellitus. <Brittany Godfrey RN - Last Filed: 04/17/22 12:50>
[2022-04-17 14:00] VITALS: BP 124/79; PULSE 108; RESP 18; TEMP 36.2; O2SAT 97
--- NOTE | 2022-04-17 14:39 | P.PNIM_ITS ---
Progress Note: A&P Assessment and Plan (1) Chest pain: Code(s): R07.9 - Chest pain, unspecified Status: Acute Assessment and Plan: patient with onset of atypical chest pain yesterday evening. * troponin elevated to 0.088, 0.131, and 0.146. * EKG showed sinus rhythm with no evidence of ST elevation * echocardiogram from 04/15/22 is unremarkable * patient has been evaluated by Cardiology today. Reports no desire for invasive cardiac testing including angiography * continue with conservative management. Continue aspirin and statin. Begin Plavix * patient reported improvement following GI cocktail. Continue with antacid therapy * D-dimer noted to be mildly elevated. PE not suspected. No pleuritic discomfort, no hypoxia, no significant tachycardia. Wells score for PE is 1.5 indicating low risk. D-dimer likely elevated due to patients hospitalization (2) Bacteremia: Code(s): R78.81 - Bacteremia Status: Acute Assessment and Plan: Blood cultures collected on presentation with growth of MRSA in 1/2 bottles * Continue vancomycin per susceptibility report * Consider de-escalating antibiotics if continued improvement * MRSA nare swab is positive. * Patient afebrile, no leukocytosis (3) Pneumonia: Code(s): J18.9 - Pneumonia, unspecified organism Status: Acute Assessment and Plan: CXR on presentation with airspace opacities in the right lower lung zone and left mid lower lung zones * no hypoxia * COVID influenza negative * continue cefepime, vancomycin, and Flagyl at this time. appreciate ID PharmD recs * Repeat CXR with improved opacities on 04/16/22 * Supportive care to include bronchodilators, expectorants, incentive spirometry (4) Hyponatremia: Code(s): E87.1 - Hypo-osmolality and hyponatremia Status: Acute Assessment and Plan: Improved. * Sodium corrected at appropriate rate following IV fluids * Sodium 131 today (5) CHF (congestive heart failure): Code(s): I50.9 - Heart failure, unspecified Status: Acute Assessment and Plan: not in acute exacerbation * patient was cautiously rehydrated. IV fluids discontinued to avoid volume overload * echocardiogram with normal EF 55-60% and grade 1 diastolic dysfunction (6) Cellulitis: Code(s): L03.90 - Cellulitis, unspecified Status: Suspected Assessment and Plan: patient noted to have increased redness and swelling of right lower extremity * Per patient's daughter, he is known to have a long-time wound of right lower extremity for which she is established with home healthcare * Findings felt to be more consistent with peripheral vascular disease, doubt cellulitis given chronicity * Appreciate wound care recommendations (7) Generalized weakness: Code(s): R53.1 - Weakness Status: Acute Assessment and Plan: likely multifactorial given history of stroke, general deconditioning and infection * supportive care * appreciate PT/OT * implement fall precautions (8) Diabetes: Code(s): E11.9 - Type 2 diabetes mellitus without complications Status: Acute Assessment and Plan: A1c 7.9 * continue Accu-Cheks, sliding scale insulin, hypoglycemic protocol * continue home Jardiance * monitor blood glucose trends Plan concern for slurred speech therefore brain MRI completed on 04/15/2022 which showed old infarcts and extensive white matter disease personal financial representative of chronic
--- NOTE | 2022-04-17 14:39 | PM.IMPN ---
Progress Note: A&P Assessment and Plan (1) Chest pain: Code(s): R07.9 - Chest pain, unspecified Status: Acute Assessment and Plan: patient with onset of atypical chest pain yesterday evening. troponin elevated to 0.088, 0.131, and 0.146. EKG showed sinus rhythm with no evidence of ST elevation echocardiogram from 04/15/22 is unremarkable patient has been evaluated by Cardiology today. Reports no desire for invasive cardiac testing including angiography continue with conservative management. Continue aspirin and statin. Begin Plavix patient reported improvement following GI cocktail. Continue with antacid therapy D-dimer noted to be mildly elevated. PE not suspected. No pleuritic discomfort, no hypoxia, no significant tachycardia. Wells score for PE is 1.5 indicating low risk. D-dimer likely elevated due to patients hospitalization (2) Bacteremia: Code(s): R78.81 - Bacteremia Status: Acute Assessment and Plan: Blood cultures collected on presentation with growth of MRSA in 1/2 bottles Continue vancomycin per susceptibility report Consider de-escalating antibiotics if continued improvement MRSA nare swab is positive. Patient afebrile, no leukocytosis (3) Pneumonia: Code(s): J18.9 - Pneumonia, unspecified organism Status: Acute Assessment and Plan: CXR on presentation with airspace opacities in the right lower lung zone and left mid lower lung zones no hypoxia COVID influenza negative continue cefepime, vancomycin, and Flagyl at this time. appreciate ID PharmD recs Repeat CXR with improved opacities on 04/16/22 Supportive care to include bronchodilators, expectorants, incentive spirometry (4) Hyponatremia: Code(s): E87.1 - Hypo-osmolality and hyponatremia Status: Acute Assessment and Plan: Improved. Sodium corrected at appropriate rate following IV fluids Sodium 131 today (5) CHF (congestive heart failure): Code(s): I50.9 - Heart failure, unspecified Status: Acute Assessment and Plan: not in acute exacerbation patient was cautiously rehydrated. IV fluids discontinued to avoid volume overload echocardiogram with normal EF 55-60% and grade 1 diastolic dysfunction (6) Cellulitis: Code(s): L03.90 - Cellulitis, unspecified Status: Suspected Assessment and Plan: patient noted to have increased redness and swelling of right lower extremity Per patient's daughter, he is known to have a long-time wound of right lower extremity for which she is established with home healthcare Findings felt to be more consistent with peripheral vascular disease, doubt cellulitis given chronicity Appreciate wound care recommendations (7) Generalized weakness: Code(s): R53.1 - Weakness Status: Acute Assessment and Plan: likely multifactorial given history of stroke, general deconditioning and infection supportive care appreciate PT/OT implement fall precautions (8) Diabetes: Code(s): E11.9 - Type 2 diabetes mellitus without complications Status: Acute Assessment and Plan: A1c 7.9 continue Accu-Cheks, sliding scale insulin, hypoglycemic protocol continue home Jardiance monitor blood glucose trends Plan concern for slurred speech therefore brain MRI completed on 04/15/2022 which showed old infarcts and extensive white matter disease home furnishings sales representative of chronic small-vessel ischemic disease. No acute findings. Slurred speech has resolved Time Spent With Patient Time: 60 minutes spent on this encounter Time with patient: Greater than 35 minutes Subjective Date/time seen: 04/17/22 14:39 Interval history: date of service: 04/17/2022 Hernandez Sutton is an 87-year-old male with a history hypertension, hyperlipidemia, pneumonia, type 2 diabetes mellitus, AAA, COVID-19, and CVA who is seen in follow-up for bacteremia
[2022-04-17] MEDS: PANTOPRAZOLE 40 MG TABLET PO (16:36)
[2022-04-17 16:51] LABS: Glucose Point of Care 260 mg/dl (65-105)
[2022-04-17 18:36] LABS: Vancomycin Trough 11.2 ug/mL (10.0-20.0)
[2022-04-17] MEDS: ATORVASTATIN 40 MG TABLET 80 MG PO (21:18)
[2022-04-17 21:27] VITALS: BP 126/73; PULSE 113; RESP 14; TEMP 36.9; O2SAT 95
[2022-04-17 21:47] LABS: Glucose Point of Care 205 mg/dl (65-105)
[2022-04-18] MEDS: metroNIDAZOLE 500 MG/ISO 100ML 500 MG/100 ML BAG 100 MG IVPB ×2 (01:42→04:57)
[2022-04-18 05:45] VITALS: BP 139/88; PULSE 62; RESP 14; TEMP 36.2; O2SAT 95
[2022-04-18 06:15] LABS: Hematocrit 35.6 % (42.0-52.0); Hemoglobin 12.2 g/dL (14.0-18.0); Mean Corpuscular HGB Conc 34.3 g/dl (32-36); Mean Corpuscular Hemoglobin 36.5 pg (26-34); Mean Corpuscular Volume 106.6 fl (80-100); Mean Platelet Volume 9.3 fl (7.4-10.4); Platelet Count Result 155 k/mm3 (150-375); Red Blood Count 3.34 M/mm3 (4.6-6.20); Red Cell Distribution Width 12.8 % (11.5-14.5); White Blood Count 6.7 K/mm3 (4.5-10.0)
[2022-04-18 06:20] LABS: Anion Gap 5 mmol/L (8-16); Blood Urea Nitrogen 15 mg/dL (9-20); Calcium 7.8 mg/dL (8.4-10.2); Carbon Dioxide 25 mmol/L (22-30); Chloride 102 mmol/L (98-107); Estimated CRCL calculation 72 ml/min; Estimated Glomerular Filt Rate > 60; Glucose 160 mg/dL (65-110); Sodium 132 mmol/L (137-145)
[2022-04-18 07:31] LABS: Glucose Point of Care 235 mg/dl (65-105)
[2022-04-18] MEDS: INSULIN ASPART (*BKC) 100 UNITS/ML SUB-Q ×3 (09:20→17:26)
[2022-04-18] MEDS: ASPIRIN 81 MG ENTERIC TABLET PO (09:21)
[2022-04-18] MEDS: CITALOPRAM HYDROBROMIDE 20 MG TABLET PO (09:21)
[2022-04-18] MEDS: CLOPIDOGREL BISULFATE 75 MG TABLET PO (09:22)
[2022-04-18] MEDS: EMPAGLIFLOZIN 10 MG TABLET PO (09:22)
[2022-04-18] MEDS: MECLIZINE HCL 12.5 MG TABLET PO (09:23)
[2022-04-18] MEDS: DOCUSATE SODIUM 100 MG CAPSULE PO ×2 (09:23→17:26)
[2022-04-18] MEDS: PANTOPRAZOLE 40 MG TABLET PO (09:23)
[2022-04-18] MEDS: LORATADINE 10 MG TABLET PO (09:24)
[2022-04-18] MEDS: ACETAMINOPHEN 325 MG TABLET 650 MG PO (09:27)
[2022-04-18 11:14] LABS: Glucose Point of Care 294 mg/dl (65-105)
[2022-04-18 14:00] VITALS: BP 116/64; PULSE 109; RESP 15; TEMP 35.7; O2SAT 98
--- NOTE | 2022-04-18 15:24 | PCOTNOTE ---
Attempted to see for OT treatment this afternoon. Patient declined due to being too tired. Will continue per POC.
[2022-04-18 16:36] LABS: Glucose Point of Care 225 mg/dl (65-105)
--- NOTE | 2022-04-18 16:50 | P.PNIM_ITS ---
Progress Note: A&P Assessment and Plan (1) Chest pain: Code(s): R07.9 - Chest pain, unspecified Status: Acute Assessment and Plan: patient with onset of atypical chest pain on 04/16. * troponin elevated to 0.088, 0.131, and 0.146. * EKG showed sinus rhythm with no evidence of ST elevation * echocardiogram from 04/15/22 is unremarkable * patient has been evaluated by Cardiology. Reports no desire for invasive cardiac testing including angiography * continue with conservative management. Continue aspirin and statin. Begin Plavix * will begin Imdur for symptomatic relief. Started 15 mg daily and monitor BP * D-dimer noted to be mildly elevated. PE not suspected. No pleuritic discomfort, no hypoxia, no significant tachycardia. Wells score for PE is 1.5 indicating low risk. D-dimer likely elevated due to patients hospitalization (2) Bacteremia: Code(s): R78.81 - Bacteremia Status: Acute Assessment and Plan: Blood cultures collected on presentation with growth of MRSA in 1/2 bottles. transient bacteremia most likely. Patient does have pneumonia, however MRSA pneumonia seems unlikely and no sputum culture obtained * Continue vancomycin per susceptibility report * will need a total of 2 weeks from negative culture. Will continue IV anti biotics through 04/29/2022 * may need to consider alternative placement to continue with outpatient IV antibiotics. Appreciate care coordination recommendation * MRSA nare swab is positive. * Patient afebrile, no leukocytosis (3) Pneumonia: Code(s): J18.9 - Pneumonia, unspecified organism Status: Acute Assessment and Plan: CXR on presentation with airspace opacities in the right lower lung zone and left mid lower lung zones * no hypoxia. no oxygen requirement * COVID and influenza negative * will discontinue cefepime and Flagyl. Transition to p.o. Augmentin to complete a 7 day course. * Repeat CXR with improved opacities on 04/16/22 * Supportive care to include bronchodilators, expectorants, incentive spirometry (4) Hyponatremia: Code(s): E87.1 - Hypo-osmolality and hyponatremia Status: Acute Assessment and Plan: Improved. * Sodium corrected at appropriate rate following IV fluids * Sodium 132 today (5) CHF (congestive heart failure): Code(s): I50.9 - Heart failure, unspecified Status: Acute Assessment and Plan: not in acute exacerbation * patient was cautiously rehydrated. IV fluids discontinued to avoid volume overload * echocardiogram with normal EF 55-60% and grade 1 diastolic dysfunction (6) Cellulitis: Code(s): L03.90 - Cellulitis, unspecified Status: Ruled-out Assessment and Plan: patient noted to have increased redness and swelling of right lower extremity * Per patient's daughter, he is known to have a long-time wound of right lower extremity for which he is established with home healthcare * Findings felt to be more consistent with peripheral vascular disease. patient does of left lower extremity involvement to a lesser degree. doubt cellulitis given bilateral findings and chronicity * Appreciate wound care recommendations (7) Generalized weakness: Code(s): R53.1 - Weakness Status: Acute Assessment and Plan: likely multifactorial given history of stroke, general deconditioning and infection * supportive care * appreciate PT/OT * implement fall precautions * family has discussed comfort care measures, however patient wishes
--- NOTE | 2022-04-18 16:50 | PM.IMPN ---
Progress Note: A&P Assessment and Plan (1) Chest pain: Code(s): R07.9 - Chest pain, unspecified Status: Acute Assessment and Plan: patient with onset of atypical chest pain on 04/16. troponin elevated to 0.088, 0.131, and 0.146. EKG showed sinus rhythm with no evidence of ST elevation echocardiogram from 04/15/22 is unremarkable patient has been evaluated by Cardiology. Reports no desire for invasive cardiac testing including angiography continue with conservative management. Continue aspirin and statin. Begin Plavix will begin Imdur for symptomatic relief. Started 15 mg daily and monitor BP D-dimer noted to be mildly elevated. PE not suspected. No pleuritic discomfort, no hypoxia, no significant tachycardia. Wells score for PE is 1.5 indicating low risk. D-dimer likely elevated due to patients hospitalization (2) Bacteremia: Code(s): R78.81 - Bacteremia Status: Acute Assessment and Plan: Blood cultures collected on presentation with growth of MRSA in 1/2 bottles. transient bacteremia most likely. Patient does have pneumonia, however MRSA pneumonia seems unlikely and no sputum culture obtained Continue vancomycin per susceptibility report will need a total of 2 weeks from negative culture. Will continue IV antibiotics through 04/29/2022 may need to consider alternative placement to continue with outpatient IV antibiotics. Appreciate care coordination recommendation MRSA nare swab is positive. Patient afebrile, no leukocytosis (3) Pneumonia: Code(s): J18.9 - Pneumonia, unspecified organism Status: Acute Assessment and Plan: CXR on presentation with airspace opacities in the right lower lung zone and left mid lower lung zones no hypoxia. no oxygen requirement COVID and influenza negative will discontinue cefepime and Flagyl. Transition to p.o. Augmentin to complete a 7 day course. Repeat CXR with improved opacities on 04/16/22 Supportive care to include bronchodilators, expectorants, incentive spirometry (4) Hyponatremia: Code(s): E87.1 - Hypo-osmolality and hyponatremia Status: Acute Assessment and Plan: Improved. Sodium corrected at appropriate rate following IV fluids Sodium 132 today (5) CHF (congestive heart failure): Code(s): I50.9 - Heart failure, unspecified Status: Acute Assessment and Plan: not in acute exacerbation patient was cautiously rehydrated. IV fluids discontinued to avoid volume overload echocardiogram with normal EF 55-60% and grade 1 diastolic dysfunction (6) Cellulitis: Code(s): L03.90 - Cellulitis, unspecified Status: Ruled-out Assessment and Plan: patient noted to have increased redness and swelling of right lower extremity Per patient's daughter, he is known to have a long-time wound of right lower extremity for which he is established with home healthcare Findings felt to be more consistent with peripheral vascular disease. patient does of left lower extremity involvement to a lesser degree. doubt cellulitis given bilateral findings and chronicity Appreciate wound care recommendations (7) Generalized weakness: Code(s): R53.1 - Weakness Status: Acute Assessment and Plan: likely multifactorial given history of stroke, general deconditioning and infection supportive care appreciate PT/OT implement fall precautions family has discussed comfort care measures, however patient wishes to continue working with therapy (8) Diabetes: Code(s): E11.9 - Type 2 diabetes mellitus without complications Status: Acute Assessment and Plan: A1c 7.9 continue Accu-Cheks, sliding scale insulin, hypoglycemic protocol continue home Jardiance monitor blood glucose trends Plan discussed case with ID PharmD and Cardiology Time Spent With Patient Time: 55 minutes Time with patient: Ishan
[2022-04-18 20:25] LABS: Glucose Point of Care 282 mg/dl (65-105)
[2022-04-18] MEDS: ATORVASTATIN 40 MG TABLET 80 MG PO (20:25)
[2022-04-18] MEDS: AMOXICILLIN/CLAVULANATE K 875-125 MG TAB 1 TABLET PO (20:27)
[2022-04-18 20:37] LABS: Osmolality, Urine 557 mOsm/kg (50-1200)
[2022-04-18 20:40] VITALS: BP 127/66; PULSE 113; RESP 18; TEMP 36.7; O2SAT 94
[2022-04-19 05:29] VITALS: BP 109/65; PULSE 88; RESP 16; TEMP 36.6; O2SAT 97
[2022-04-19 07:10] LABS: Hematocrit 36.4 % (42.0-52.0); Hemoglobin 12.5 g/dL (14.0-18.0); Mean Corpuscular HGB Conc 34.3 g/dl (32-36); Mean Corpuscular Hemoglobin 36.2 pg (26-34); Mean Corpuscular Volume 105.5 fl (80-100); Mean Platelet Volume 9.2 fl (7.4-10.4); Platelet Count Result 171 k/mm3 (150-375); Red Blood Count 3.45 M/mm3 (4.6-6.20); White Blood Count 7.1 K/mm3 (4.5-10.0)
[2022-04-19 07:21] LABS: Anion Gap 5 mmol/L (8-16); Blood Urea Nitrogen 15 mg/dL (9-20); Calcium 8.3 mg/dL (8.4-10.2); Carbon Dioxide 25 mmol/L (22-30); Chloride 102 mmol/L (98-107); Estimated CRCL calculation 72 ml/min; Estimated Glomerular Filt Rate > 60; Glucose 167 mg/dL (65-110); Potassium 4.3 mmol/L (3.4-5.0); Sodium 132 mmol/L (137-145)
[2022-04-19 07:30] LABS: Glucose Point of Care 401 mg/dl (65-105)
[2022-04-19 07:50] LABS: Glucose Point of Care 170 mg/dl (65-105)
--- NOTE | 2022-04-19 07:51 | PC.NURSE ---
Pt's initial AM blood sugar was 401. This nurse checked patients AM labs and saw that the glucose from the labs was 167. This nurse went to go recheck the finger stick blood sugar and got 170. No insulin needed at this time.
[2022-04-19 08:10] LABS: Vancomycin Trough 20.3 ug/mL (10.0-20.0)
[2022-04-19] MEDS: CITALOPRAM HYDROBROMIDE 20 MG TABLET PO (08:28)
[2022-04-19] MEDS: AMOXICILLIN/CLAVULANATE K 875-125 MG TAB 1 TABLET PO (08:28)
[2022-04-19] MEDS: EMPAGLIFLOZIN 10 MG TABLET PO (08:28)
[2022-04-19] MEDS: PANTOPRAZOLE 40 MG TABLET PO (08:28)
[2022-04-19] MEDS: LORATADINE 10 MG TABLET PO (08:28)
[2022-04-19] MEDS: ASPIRIN 81 MG ENTERIC TABLET PO (08:28)
[2022-04-19] MEDS: DOCUSATE SODIUM 100 MG CAPSULE PO ×2 (08:28→16:49)
[2022-04-19] MEDS: MECLIZINE HCL 12.5 MG TABLET PO (08:28)
[2022-04-19] MEDS: COLLAGENASE OINT 30 GM TUBE 1 APPLIC TOPICAL (09:09)
[2022-04-19] MEDS: LIDOCAINE HCL 1% PF INJ 5 ML VIAL INFILTRATE (10:15)
[2022-04-19] MEDS: CLOPIDOGREL BISULFATE 75 MG TABLET PO (10:59)
[2022-04-19] MEDS: ISOSORBIDE MONONITRATE 15 MG TAB.ER.24H PO (10:59)
[2022-04-19 11:19] LABS: Glucose Point of Care 231 mg/dl (65-105)
[2022-04-19] MEDS: INSULIN ASPART (*BKC) 100 UNITS/ML SUB-Q ×2 (12:11→16:49)
[2022-04-19] MEDS: HYDROcodone/acetaminophen (*CRX) 5-325 MG TABLET 1 TAB PO (12:12)
--- NOTE | 2022-04-19 13:27 | PCOTNOTE ---
Attempted to see patient multiple times this date. First attempt, room was closed for sterile procedure. Second attempt, patient was with PT. Third attempt, patient was sleeping and daughter reported, They tried to get him up earlier, and he didn't do too well. They gave him a pain pill, and he's been sleeping ever since. Daughter requested to come back another time.
[2022-04-19] MEDS: CENTRAL LINE FLUSH 10 ML IV PUSH (13:39)
--- NOTE | 2022-04-19 14:10 | P.PNIM_ITS ---
Progress Note: A&P Assessment and Plan (1) Chest pain: Code(s): R07.9 - Chest pain, unspecified Status: Acute Assessment and Plan: patient with onset of atypical chest pain on 04/16. * troponin elevated to 0.088, 0.131, and 0.146. * EKG showed sinus rhythm with no evidence of ST elevation * echocardiogram from 04/15/22 is unremarkable * patient has been evaluated by Cardiology. Reports no desire for invasive cardiac testing including angiography * continue with conservative management. Continue aspirin and statin. Begin Plavix * will begin Imdur for symptomatic relief. Started 15 mg daily and monitor BP * D-dimer noted to be mildly elevated. PE not suspected. No pleuritic discomfort, no hypoxia, no significant tachycardia. Wells score for PE is 1.5 indicating low risk. D-dimer likely elevated due to patients hospitalization (2) Bacteremia: Code(s): R78.81 - Bacteremia Status: Acute Assessment and Plan: Blood cultures collected on presentation with growth of MRSA in 1/2 bottles. transient bacteremia most likely. Patient does have pneumonia, however MRSA pneumonia seems unlikely and no sputum culture obtained * Continue vancomycin per susceptibility report * will need a total of 2 weeks from negative culture. Will continue IV anti biotics through 04/29/2022 * may need to consider alternative placement to continue with outpatient IV antibiotics. Appreciate care coordination recommendation * MRSA nare swab is positive. * Patient afebrile, no leukocytosis (3) Pneumonia: Code(s): J18.9 - Pneumonia, unspecified organism Status: Acute Assessment and Plan: CXR on presentation with airspace opacities in the right lower lung zone and left mid lower lung zones * no hypoxia. no oxygen requirement * COVID and influenza negative * cefepime and Flagyl discontinued on 04/18. Transitioned to p.o. Augmentin to complete a 7 day course. * Repeat CXR with improved opacities on 04/16/22 * Supportive care to include bronchodilators, expectorants, incentive spirometry (4) Hyponatremia: Code(s): E87.1 - Hypo-osmolality and hyponatremia Status: Acute Assessment and Plan: Improved. * Sodium corrected at appropriate rate following IV fluids * Sodium 132 today (5) CHF (congestive heart failure): Code(s): I50.9 - Heart failure, unspecified Status: Acute Assessment and Plan: not in acute exacerbation * patient was cautiously rehydrated. IV fluids discontinued to avoid volume ov erload * echocardiogram with normal EF 55-60% and grade 1 diastolic dysfunction (6) Cellulitis: Code(s): L03.90 - Cellulitis, unspecified Status: Ruled-out Assessment and Plan: patient noted to have increased redness and swelling of right lower extremity * Per patient's daughter, he is known to have a long-time wound of right lower extremity for which he is established with home healthcare * Findings felt to be more consistent with peripheral vascular disease. patient does have left lower extremity involvement to a lesser degree. doubt cellulitis given bilateral findings and chronicity * will evaluate venous Doppler to rule out DVT given elevated D-dimer * Appreciate wound care recommendations (7) Generalized weakness: Code(s): R53.1 - Weakness Status: Acute Assessment and Plan: likely multifactorial given history of stroke, general deconditioning and infection * supportive care * appreciate PT/OT * implement fall pre
--- NOTE | 2022-04-19 14:10 | PM.IMPN ---
Progress Note: A&P Assessment and Plan (1) Chest pain: Code(s): R07.9 - Chest pain, unspecified Status: Acute Assessment and Plan: patient with onset of atypical chest pain on 04/16. troponin elevated to 0.088, 0.131, and 0.146. EKG showed sinus rhythm with no evidence of ST elevation echocardiogram from 04/15/22 is unremarkable patient has been evaluated by Cardiology. Reports no desire for invasive cardiac testing including angiography continue with conservative management. Continue aspirin and statin. Begin Plavix will begin Imdur for symptomatic relief. Started 15 mg daily and monitor BP D-dimer noted to be mildly elevated. PE not suspected. No pleuritic discomfort, no hypoxia, no significant tachycardia. Wells score for PE is 1.5 indicating low risk. D-dimer likely elevated due to patients hospitalization (2) Bacteremia: Code(s): R78.81 - Bacteremia Status: Acute Assessment and Plan: Blood cultures collected on presentation with growth of MRSA in 1/2 bottles. transient bacteremia most likely. Patient does have pneumonia, however MRSA pneumonia seems unlikely and no sputum culture obtained Continue vancomycin per susceptibility report will need a total of 2 weeks from negative culture. Will continue IV antibiotics through 04/29/2022 may need to consider alternative placement to continue with outpatient IV antibiotics. Appreciate care coordination recommendation MRSA nare swab is positive. Patient afebrile, no leukocytosis (3) Pneumonia: Code(s): J18.9 - Pneumonia, unspecified organism Status: Acute Assessment and Plan: CXR on presentation with airspace opacities in the right lower lung zone and left mid lower lung zones no hypoxia. no oxygen requirement COVID and influenza negative cefepime and Flagyl discontinued on 04/18. Transitioned to p.o. Augmentin to complete a 7 day course. Repeat CXR with improved opacities on 04/16/22 Supportive care to include bronchodilators, expectorants, incentive spirometry (4) Hyponatremia: Code(s): E87.1 - Hypo-osmolality and hyponatremia Status: Acute Assessment and Plan: Improved. Sodium corrected at appropriate rate following IV fluids Sodium 132 today (5) CHF (congestive heart failure): Code(s): I50.9 - Heart failure, unspecified Status: Acute Assessment and Plan: not in acute exacerbation patient was cautiously rehydrated. IV fluids discontinued to avoid volume overload echocardiogram with normal EF 55-60% and grade 1 diastolic dysfunction (6) Cellulitis: Code(s): L03.90 - Cellulitis, unspecified Status: Ruled-out Assessment and Plan: patient noted to have increased redness and swelling of right lower extremity Per patient's daughter, he is known to have a long-time wound of right lower extremity for which he is established with home healthcare Findings felt to be more consistent with peripheral vascular disease. patient does have left lower extremity involvement to a lesser degree. doubt cellulitis given bilateral findings and chronicity will evaluate venous Doppler to rule out DVT given elevated D-dimer Appreciate wound care recommendations (7) Generalized weakness: Code(s): R53.1 - Weakness Status: Acute Assessment and Plan: likely multifactorial given history of stroke, general deconditioning and infection supportive care appreciate PT/OT implement fall precautions family has discussed comfort care measures, however patient wishes to continue working with therapy patient feels that he is getting weaker this hospitalization despite participating in therapy. will evaluate TSH, B12, folate (8) Diabetes: Code(s): E11.9 - Type 2 diabetes mellitus without complications Status: Acute Assessment and Plan: A1c 7.9 continue Accu-Cheks, sliding scale insulin
--- NOTE | 2022-04-19 15:52 | P.DS_ITS ---
DS: Admitting Diagnosis Discharge Date 04/19/2022 Admitting Diagnosis falls DS: Discharge Diagnosis Discharge Diagnosis (1) Chest pain: Code(s): R07.9 - Chest pain, unspecified Status: Acute Assessment and Plan: patient with onset of atypical chest pain on 04/16. * troponin elevated to 0.088, 0.131, and 0.146. * EKG showed sinus rhythm with no evidence of ST elevation * echocardiogram from 04/15/22 unremarkable * patient was evaluated by Cardiology. Reports no desire for invasive cardiac testing including angiography * conservative management provided. Continue aspirin and statin. Started on Plavix per cardiology recommendations * started on Imdur 10 mg daily for symptomatic relief * D-dimer noted to be mildly elevated. PE not suspected. No pleuritic discomfort, no hypoxia, no significant tachycardia. Wells score for PE is 1.5 indicating low risk. D-dimer likely elevated due to patients hospitalization (2) Bacteremia: Code(s): R78.81 - Bacteremia Status: Acute Assessment and Plan: Blood cultures collected on presentation with growth of MRSA in 1/2 bottles. transient bacteremia most likely. Patient does have pneumonia, however MRSA pneumonia seems unlikely and no sputum culture obtained * managed with IV vancomycin per susceptibility report * will need a total of 2 weeks from negative culture. IV antibiotics to be continued through 04/29/2022 * PICC line placed on 04/19/22 to continue abx at swing bed * MRSA nare swab is positive. * Patient afebrile. Mild leukocytosis on presentation resolved (3) Pneumonia: Code(s): J18.9 - Pneumonia, unspecified organism Status: Acute Assessment and Plan: CXR on presentation with airspace opacities in the right lower lung zone and left mid lower lung zones * no hypoxia. no oxygen requirement * COVID and influenza negative * cefepime and Flagyl discontinued on 04/18. Transitioned to p.o. Augmentin to complete a 7 day course. * Repeat CXR with improved opacities on 04/16/22 * Supportive care provided including bronchodilators, expectorants, incentive spirometry (4) Hyponatremia: Code(s): E87.1 - Hypo-osmolality and hyponatremia Status: Acute Assessment and Plan: Improved. * Sodium corrected at appropriate rate following IV fluids * Sodium 132 at time of discharge (5) CHF (congestive heart failure): Code(s): I50.9 - Heart failure, unspecified Status: Acute Assessment and Plan: not in acute exacerbation * patient was cautiously rehydrated. IV fluids discontinued to avoid volume overload * echocardiogram with normal EF 55-60% and grade 1 diastolic dysfunction * remained clinically compensated (6) Cellulitis: Code(s): L03.90 - Cellulitis, unspecified Status: Ruled-out Assessment and Plan: patient noted to have increased redness and swelling of right lower extremity * Per patient's daughter, he is known to have a long-time wound of right lower extremity for which he is established with home healthcare * Findings felt to be more consistent with peripheral vascular disease. patient does have left lower extremity involvement to a lesser degree. doubt cellulitis given bilateral findings and chronicity * venous Doppler completed given elevated d-dimer which was negative for DVT * wound care recommendations noted (7) Generalized weakness: Code(s): R53.1 - Weakness Status: Acute Assessment and Plan: likely multifactorial
--- NOTE | 2022-04-19 15:52 | PM.DS ---
DS: Admitting Diagnosis Discharge Date 04/19/2022 Admitting Diagnosis falls DS: Discharge Diagnosis Discharge Diagnosis (1) Chest pain: Code(s): R07.9 - Chest pain, unspecified Status: Acute Assessment and Plan: patient with onset of atypical chest pain on 04/16. troponin elevated to 0.088, 0.131, and 0.146. EKG showed sinus rhythm with no evidence of ST elevation echocardiogram from 04/15/22 unremarkable patient was evaluated by Cardiology. Reports no desire for invasive cardiac testing including angiography conservative management provided. Continue aspirin and statin. Started on Plavix per cardiology recommendations started on Imdur 10 mg daily for symptomatic relief D-dimer noted to be mildly elevated. PE not suspected. No pleuritic discomfort, no hypoxia, no significant tachycardia. Wells score for PE is 1.5 indicating low risk. D-dimer likely elevated due to patients hospitalization (2) Bacteremia: Code(s): R78.81 - Bacteremia Status: Acute Assessment and Plan: Blood cultures collected on presentation with growth of MRSA in 1/2 bottles. transient bacteremia most likely. Patient does have pneumonia, however MRSA pneumonia seems unlikely and no sputum culture obtained managed with IV vancomycin per susceptibility report will need a total of 2 weeks from negative culture. IV antibiotics to be continued through 04/29/2022 PICC line placed on 04/19/22 to continue abx at swing bed MRSA nare swab is positive. Patient afebrile. Mild leukocytosis on presentation resolved (3) Pneumonia: Code(s): J18.9 - Pneumonia, unspecified organism Status: Acute Assessment and Plan: CXR on presentation with airspace opacities in the right lower lung zone and left mid lower lung zones no hypoxia. no oxygen requirement COVID and influenza negative cefepime and Flagyl discontinued on 04/18. Transitioned to p.o. Augmentin to complete a 7 day course. Repeat CXR with improved opacities on 04/16/22 Supportive care provided including bronchodilators, expectorants, incentive spirometry (4) Hyponatremia: Code(s): E87.1 - Hypo-osmolality and hyponatremia Status: Acute Assessment and Plan: Improved. Sodium corrected at appropriate rate following IV fluids Sodium 132 at time of discharge (5) CHF (congestive heart failure): Code(s): I50.9 - Heart failure, unspecified Status: Acute Assessment and Plan: not in acute exacerbation patient was cautiously rehydrated. IV fluids discontinued to avoid volume overload echocardiogram with normal EF 55-60% and grade 1 diastolic dysfunction remained clinically compensated (6) Cellulitis: Code(s): L03.90 - Cellulitis, unspecified Status: Ruled-out Assessment and Plan: patient noted to have increased redness and swelling of right lower extremity Per patient's daughter, he is known to have a long-time wound of right lower extremity for which he is established with home healthcare Findings felt to be more consistent with peripheral vascular disease. patient does have left lower extremity involvement to a lesser degree. doubt cellulitis given bilateral findings and chronicity venous Doppler completed given elevated d-dimer which was negative for DVT wound care recommendations noted (7) Generalized weakness: Code(s): R53.1 - Weakness Status: Acute Assessment and Plan: likely multifactorial given history of stroke, general deconditioning and infection supportive care appreciate PT/OT evals fall precautions family has discussed comfort care measures, however patient wishes to continue working with therapy continue therapy at swing bed (8) Diabetes: Code(s): E11.9 - Type 2 diabetes mellitus without complications Status: Acute Assessment and Plan: A1c 7.9 Accu-Cheks, sliding scale insulin,
[2022-04-19 16:34] LABS: Glucose Point of Care 327 mg/dl (65-105)
[2022-04-19 16:54] LABS: EDCOVIDSCREEN Negative (Negative)
== END 2022-04-19 19:20 | disposition swing bed (61) | DRG 194 ==
LOC: ANHED 08:37 → ANH3MEDSUR 12:00
PROVIDERS: Internal Medicine; Nurse Practitioner; Admitting Provider Family Medicine; Emergency Provider Emergency Medicine; PCP Family Medicine; Visit Provider Physician Assistant
DX: J18.9 Pneumonia, unspecified organism (principal); E87.1 Hypo-osmolality and hyponatremia; I69.354 Hemiplegia and hemiparesis following cerebral infarction affecting left non-dominant side; R78.81 Bacteremia; I50.32 Chronic diastolic (congestive) heart failure; B95.62 Methicillin resistant Staphylococcus aureus infection as the cause of diseases classified elsewhere; E11.51 Type 2 diabetes mellitus with diabetic peripheral angiopathy without gangrene; E86.0 Dehydration; E78.5 Hyperlipidemia, unspecified; I71.40 Abdominal aortic aneurysm, without rupture, unspecified; I11.0 Hypertensive heart disease with heart failure; R47.81 Slurred speech; R07.9 Chest pain, unspecified; R77.8 Other specified abnormalities of plasma proteins; R29.6 Repeated falls; Z79.84 Long term (current) use of oral hypoglycemic drugs; Z96.653 Presence of artificial knee joint, bilateral; Z66 Do not resuscitate; Z86.16 Personal history of COVID-19; Z79.82 Long term (current) use of aspirin; Z20.822 Contact with and (suspected) exposure to COVID-19
CPT/HCPCS: 36415; 36569; 70450; 70551; 71045; 73060; 80048; 80053; 80202; 81001; 82570; 82948; 83036; 83605; 83735; 83880; 83935; 84295; 84300; 84484; 84540; 85025; 85027; 85380; 85610; 85730; 87040; 87081; 87147; 87181; 87186; 87426; 87637; 93005; 93306; 93970; 96365; 96367; 96376; 97110; 97161; 97165; 97530; 99285; A9270; C1751; C9803; J0456; J0692; J0696; J1815; J3370; J7030